=== PATIENT | male | born 1960 | race Asian ===

== ENCOUNTER 2018-11-01 17:17 | Emergency (ER) | payer MEDICAID, MEDICARE ==
[2018-11-01] MEDS ORDERED: NAPROXEN 250 MG TABLET PO STA (17:52)
--- NOTE | 2018-11-01 17:54 | ED Physician Documentation ---
PD HPI BACK PAIN - Stated complaint Stated Complaint: RT SIDE PX - Chief complaint Chief Complaint: Back Pain - History obtained from History obtained from: Patient, Friend - History of Present Illness Timing - onset: Other (This is a 57-year-old gentleman with chronic low back pain with some disability from it who presents with what he describes as a sharp pain that runs from under the armpit into the right breast. Is worse with motion and deep breathing. He is not short of breath. There is no associated cough or calf pain. No recent travel. Tylenol is helpful but it does not last long enough.) Review of Systems Ten Systems: 10 systems reviewed and negative Constitutional: denies: Fever, Chills Respiratory: denies: Dyspnea, Cough, Hemoptysis, Wheezing GI: denies: Abdominal Pain PD PAST MEDICAL HISTORY - Past Medical History Past Medical History: No - Past Surgical History Past Surgical History: Yes - Present Medications Home Medications: Ambulatory Orders Medication Instructions Recorded Confirmed RX: Baclofen 11/01/18 RX: Gabapentin 11/01/18 RX: Naproxen 500 mg PO BID PRN #20 tablet 11/01/18 - Allergies Allergies/Adverse Reactions: Allergies Allergy/AdvReac Type Severity Reaction Status Date / Time No Known Drug Allergies Allergy Verified 11/01/18 17:28 - Social History Does the pt smoke?: No Smoking Status: Former smoker Does the pt drink ETOH?: No Does the pt have substance abuse?: No PD ED PE NORMAL - Vitals Vital signs reviewed: Yes - General General: Alert and oriented X 3, No acute distress - HEENT HEENT: PERRL, EOMI - Neck Neck: Supple, no meningeal sign, No bony TTP - Cardiac Cardiac: RRR, No murmur - Respiratory Respiratory: No respiratory distress, Clear bilaterally, Other (I am unable to reproduce the chest pain with palpation of the ribs in the right axilla or anywhere in that area.) - Abdomen Abdomen: Non tender - Extremities Extremities: No edema, No calf tenderness / cord - Neuro Neuro: Alert and oriented X 3, Normal speech Results - Vitals Vitals: Vital Signs - 24 hr 11/01/18 11/01/18 17:25 18:37 Temperature 36.7 C 37.2 C Heart Rate 66 62 Respiratory 18 12 Rate Blood Pressure 134/82 H 122/71 O2 Saturation 99 99 Oxygen O2 Source Room air - Labs Labs: Laboratory Tests 11/01/18 11/01/18 11/01/18 17:57 17:57 17:57 WBC 5.3 RBC 4.86 Hgb 13.5 L Hct 41.1 L MCV 84.5 MCH 27.7 MCHC 32.8 RDW 14.5 Plt Count 176 MPV 7.5 Neut # (Auto) 2.6 Lymph # (Auto) 1.9 Taylor # (Auto) 0.6 Eos # (Auto) 0.1 Baso # (Auto) 0.0 Absolute Nucleated RBC 0.01 Nucleated RBC % 0.1 D-Dimer Sodium 139 Potassium 4.0 Chloride 102 Carbon Dioxide 29 Anion Gap 8.0 BUN 17 Creatinine 1.0 Estimated GFR (MDRD) 77 L Glucose 118 H Calcium 9.3 Total Bilirubin 0.7 AST 27 ALT 22 Alkaline Phosphatase 62 Troponin I < 0.04 Total Protein 8.0 Albumin 4.2 Globulin 3.8 Albumin/Globulin Ratio 1.1 Lipase 31 11/01/18 17:57 WBC RBC Hgb Hct MCV MCH MCHC RDW Plt Count MPV Neut # (Auto) Lymph # (Auto) Taylor # (Auto) Eos # (Auto) Baso # (Auto) Absolute Nucleated RBC Nucleated RBC % D-Dimer 207.5 Sodium Potassium Chloride Carbon Dioxide Anion Gap BUN Creatinine Estimated GFR (MDRD) Glucose Calcium Total Bilirubin AST ALT Alkaline Phosphatase Troponin I Total Protein Albumin Globulin Albumin/Globulin Ratio Lipase - Rads (name of study) 2v chest Radiology: EMP read contemporaneously (NAD save 4mm R mid lung nodule) PD MEDICAL DECISION MAKING - ED course ED course: Who presents with what seems like chest wall pain in the right armpit. It is not reproducible at this time. Diagnostic testing for more serious etiologies was negative. Departure - Departure Disposition: 01 Home, Self Care Clinical Impression: Chest wall pain, Pulmonary nodule Condition: Good Record reviewed to determine appropriate education?: Yes Instructions: ED Strain Chest Wall Prescriptions: RX: Naproxen 500 mg PO BID PRN #20 tablet PRN Reason: Pain Comments: Your testing is negative, we have ruled out blood clot, heart issue, punctured lung or pneumonia. You do have a tiny lung nodule, measuring only 4 mm. You should have a repeat chest x-ray in approximately 3 months to reassess this. You can discuss this with your primary care physician. Return for new or worsening symptoms. Follow-up with your primary care doctor within the week. Discharge Date/Time: 11/01/18 18:46
[2018-11-01 18:03] LABS: EOSINOPHILS # (AUTO) 0.1 10^3/uL (0.0-0.7); EOSINOPHILS % (AUTO) 1.8 %; HGB - HEMOGLOBIN 13.5 g/dL (14.0-18.0); LYMPHOCYTES # (AUTO) 1.9 10^3/uL (1.5-3.5); LYMPHOCYTES % (AUTO) 36.4 %; MEAN CORPUSCULAR HEMOGLOBIN 27.7 pg (27.0-31.0); MEAN CORPUSCULAR HGB CONC 32.8 g/dL (32.0-36.0); MEAN CORPUSCULAR VOLUME 84.5 fL (80.0-94.0); MEAN PLATELET VOLUME 7.5 fL (7.4-11.4); MONOCYTES # (AUTO) 0.6 10^3/uL (0.0-1.0); MONOCYTES % (AUTO) 12.1 %; NEUTROPHILS # (AUTO) 2.6 10^3/uL (1.5-6.6); NEUTROPHILS % (AUTO) 48.7 %; PLT - PLATELET COUNT 176 10^3/uL (130-450); RED BLOOD COUNT 4.86 10^6/uL (4.70-6.10); RED CELL DISTRIBUTION WIDTH 14.5 % (12.0-15.0); WHITE BLOOD COUNT 5.3 x10^3/uL (4.8-10.8)
[2018-11-01 18:18] LABS: ALBUMIN 4.2 g/dL (3.2-5.5); ALBUMIN/GLOBULIN RATIO 1.1 (1.0-2.2); BILIRUBIN,TOTAL 0.7 mg/dL (0.2-1.0); CALCIUM 9.3 mg/dL (8.5-10.3)
--- NOTE | 2018-11-01 18:25 | XRAY Report ---
Reason: R upper CP Procedure Date: 11/01/2018 Accession Number: [id number] / [id number] Procedure: XR - Chest 2 View X-Ray CPT Code: 93152 FULL RESULT: EXAM: CHEST RADIOGRAPHY EXAM DATE: 11/01/2018 06:19 PM. CLINICAL HISTORY: R upper CP. COMPARISON: None. TECHNIQUE: 2 views. FINDINGS: Lungs/Pleura: Small faint nodule in right mid lung zone measuring about 4 mm. No acute infiltrate, consolidation, effusion, or pneumothorax. Mediastinum: Heart and mediastinal contours are unremarkable. Upper lobe vessels not distended. Other: None. IMPRESSION: 1. No acute disease. 2. Small nodule on the right; direct comparison to old studies would be helpful, if they can be made available. If not, follow-up is recommended. [facility]
[2018-11-01 18:37] VITALS: BP 122/71
== END 2018-11-01 18:46 | disposition home or self-care (01) ==
LOC: ED 17:17
DX: R07.89 Other chest pain (principal); R91.1 Solitary pulmonary nodule; Z87.891 Personal history of nicotine dependence
CPT/HCPCS: 36415; 71046; 80053; 83690; 84484; 85025; 85379; 99283; A9270

== ENCOUNTER 2019-02-22 11:12 | Outpatient (CLI) | payer MEDICAID ==
[2019-02-22 18:21] LABS: BASOPHILS # (AUTO) 0.1 10^3/uL (0.0-0.1); BASOPHILS % (AUTO) 1.2 %; EOSINOPHILS # (AUTO) 0.1 10^3/uL (0.0-0.7); EOSINOPHILS % (AUTO) 1.6 %; HGB - HEMOGLOBIN 13.4 g/dL (14.0-18.0); LYMPHOCYTES # (AUTO) 1.5 10^3/uL (1.5-3.5); LYMPHOCYTES % (AUTO) 31.2 %; MEAN CORPUSCULAR HEMOGLOBIN 28.1 pg (27.0-31.0); MEAN CORPUSCULAR HGB CONC 32.3 g/dL (32.0-36.0); MEAN PLATELET VOLUME 10.3 fL (7.4-11.4); MONOCYTES # (AUTO) 0.6 10^3/uL (0.0-1.0); MONOCYTES % (AUTO) 12.2 %; NEUTROPHILS # (AUTO) 2.6 10^3/uL (1.5-6.6); NEUTROPHILS % (AUTO) 53.6 %; PLT - PLATELET COUNT 178 10^3/uL (130-450); RED BLOOD COUNT 4.77 10^6/uL (4.70-6.10); RED CELL DISTRIBUTION WIDTH 14.2 % (12.0-15.0); WHITE BLOOD COUNT 4.9 x10^3/uL (4.8-10.8)
[2019-02-22 18:34] LABS: CREATININE 0.8 mg/dL (0.6-1.2)
== END 2019-02-22 11:20 | disposition home or self-care (01) ==
LOC: LAB.N 11:12
PROVIDERS: ATTEND Physician Assistant Medical
DX: R45.1 Restlessness and agitation (principal); M79.10 Myalgia, unspecified site; M54.89 Other dorsalgia; Z12.5 Encounter for screening for malignant neoplasm of prostate
CPT/HCPCS: 36415; 80048; 84153; 84443; 85025

== ENCOUNTER 2019-05-24 09:56 | Outpatient (CLI) | payer MEDICARE, MEDICAID | END 2019-05-24 23:59 | disposition home or self-care (01) | LOC: LAB.N 09:56 | PROVIDERS: ATTEND Physician Assistant Medical | DX: Z91.013 Allergy to seafood (principal) | CPT/HCPCS: 36415; 81599; 86003 ==